=== PATIENT | male | born 1960 | race Caucasian/White ===

== ENCOUNTER → 2019-08-03 | Outpatient (CLI) | payer BC ==
[~2019-08-03] MED LIST: ISOVUE-370 76% 100ML VIAL (Q9967) As Ordered ONE
--- NOTE | 2019-08-04 04:16 | REP ---
Clinical: Hematuria. Technique: Precontrast, contrast enhanced, and delayed images of the abdomen and pelvis using 100 ml Isovue 370 intravenous contrast material with coronal and sagittal re-formations. Findings: Evaluation of the urinary tract system demonstrates mild relatively symmetric chronic-appearing perinephric stranding without hydroureteronephrosis, nephroureterolithiasis, renal cystic or mass lesion. Bladder and prostate gland are normal in appearance. Liver, spleen, pancreas, gallbladder, and bilateral adrenal glands are normal. Small 1.3 cm splenule identified adjacent to the tail of the pancreas and splenic hilum. The enteric system is without obstruction or acute inflammatory process. Normal terminal ileum and appendix are identified in the right lower quadrant. Scattered colonic and sigmoid diverticulosis noted without acute diverticulitis. No ascites. No free air. Abdominal aorta and vasculature appear normal and without aneurysm or dissection. Musculoskeletal structures are intact. Lung bases are clear. Impression: 1. Relatively normal appearance to the urinary tract system. 2. Scattered diverticula without acute diverticulitis. 3. No further abdominopelvic pathology appreciated. Electronically Signed by Yvan Armstrong MD 08/04/2019 04:08 A
== END ==
LOC: M RAD 15:25
PROVIDERS: ATTEND Urology
DX: K57.30 Diverticulosis of large intestine without perforation or abscess without bleeding (principal); R31.0 Gross hematuria
CPT/HCPCS: 74178; Q9967